=== PATIENT | male | born 1995 | race African-American/Black ===

== ENCOUNTER 2024-03-17 14:12 | Emergency (ER) | payer OTHER ==
[~2024-03-17] VITALS: Ht 172.7 cm; Wt 57.0 kg
[2024-03-17 14:16] VITALS: O2SAT 99
[2024-03-17] MEDS ORDERED: IBUP-2029 MT (17:21)
[2024-03-17 17:43] VITALS: BP 136/81; PULSE 66; RESP 12; TEMP 98.3
== END 2024-03-17 17:53 | disposition home or self-care (01) ==
LOC: ER 14:12
DX: S20.212A Contusion of left front wall of thorax, initial encounter (principal); X58.XXXA Exposure to other specified factors, initial encounter; Y93.89 Activity, other specified; Y92.89 Other specified places as the place of occurrence of the external cause; Y99.8 Other external cause status
CPT/HCPCS: 71101; 99283